=== PATIENT | female | born 1980 ===

== ENCOUNTER → 2020-10-17 | Outpatient (REF) | payer BC | LOC: M LAB REF 12:50 | PROVIDERS: ATTEND Physician Assistant | DX: H61.23 Impacted cerumen, bilateral (principal) ==

== ENCOUNTER → 2025-10-27 | Outpatient (REF) | payer BC ==
[2025-10-27 17:31] LABS: BASO # 0.1 10^3/uL (0.0-0.2); BASO % 1.1 % (0.0-1.0); EOS # 0.3 10^3/uL (0.0-0.5); EOS % 4.0 % (0.0-3.0); LYMPH # 3.5 10^3/uL (1.5-5.0); LYMPH % 43.2 % (24.0-44.0); MONO # 0.6 10^3/uL (0.0-0.8); MONO % 7.2 % (2.0-8.0); NEUTROPHILS # 3.6 10^3/uL (1.5-8.5); NEUTROPHILS % 44.4 % (36.0-66.0); PLATELET COUNT, AUTOMATED 276 10^3/uL (150-450)
[2025-10-27 17:32] LABS: ALT/SGPT 26.0 U/L (7.0-40); AST/SGOT 19.0 U/L (<34); CALCIUM LEVEL 9.4 MG/DL (8.5-10.1); CARBON DIOXIDE LEVEL 30.0 MMOL/L (20-31); CHLORIDE LEVEL 104.0 MMOL/L (98-107); CHOLESTEROL LEVEL 208.0 MG/DL (<200); CHOLESTEROL RISK RATIO 3.18 (<5); CREATININE FOR GFR 0.88 MG/DL (0.55-1.30); GLOMERULAR FILTRATION RATE 83.6 (>58); LDL CHOLESTEROL 123.2 MG/DL (<100); NON-HDL-C 142.6 MG/DL; POTASSIUM SERUM 4.4 MMOL/L (3.5-5.1); SODIUM LEVEL 139.0 MMOL/L (136-145); TRIGLYCERIDES LEVEL 97.0 MG/DL (<150)
== END ==
LOC: M LAB REF 16:30
PROVIDERS: ATTEND Pediatrics
DX: R31.21 Asymptomatic microscopic hematuria (principal); E78.5 Hyperlipidemia, unspecified; F51.04 Psychophysiologic insomnia